=== PATIENT | female | born 1980 | race Caucasian/White ===

== ENCOUNTER 2016-08-06 16:10 | Outpatient (CLI) | payer OTHER, BC | END 2016-08-06 23:00 | LOC: LAB SRH 16:10 | DX: R10.13 Epigastric pain (principal) | CPT/HCPCS: 90074; 90100; 92235; 95059 ==

== ENCOUNTER 2016-08-07 10:48 | Outpatient (CLI) | payer OTHER, BC ==
--- NOTE | 2016-08-07 11:26 | DIAGNOSTIC IMAGING REPORT ---
PROCEDURE: US ABDOMEN ULTRASOUND-LIMITED INDICATION: RUQ PAIN TECHNIQUE: Arellano scale and color Doppler sonographic images of the abdomen were obtained without comparison. COMPARISON: None. FINDINGS: The liver is normal in size, contour, and echotexture. No mass or intrahepatic biliary dilatation. The gallbladder is normal without stones or sludge. There is a 3 mm polyp along the anterior wall of the gallbladder. The wall is otherwise normal thickness measuring 1.9 mm No pericholecystic fluid or Chaves sign. The extrahepatic common duct is normal measuring 1.3 mm The visualized pancreas is normal without ductal dilatation or peripancreatic fluid collection. The abdominal aorta is normal in its course and caliber. The retrohepatic inferior vena cava is patent. There is appropriate hepatopetal flow in the portal vein. The right kidney measures 10.7 cm in length. There is no perihepatic or perisplenic ascites. IMPRESSION: 1. Normal abdominal ultrasound. 2. 3 mm gallbladder polyp.
== END 2016-08-07 23:00 ==
LOC: US SRH 10:48
DX: R10.11 Right upper quadrant pain (principal); K82.4 Cholesterolosis of gallbladder